=== PATIENT | female | born 1980 | race Caucasian/White ===

== ENCOUNTER 2020-01-20 09:05 | Emergency (ER) | payer SELFPAY ==
--- NOTE | 2020-01-20 09:49 | ER Document Report ---
ED Medical Screen (RME) - General Chief Complaint: Breast Lump Stated Complaint: LUMP ON BREAST Time Seen by Provider: 01/20/20 09:45 Mode of Arrival: Ambulatory Information source: Patient Notes: Patient presents with complaints of right-sided breast possibly abscess with nipple drainage erythema. Reports history of surgery to that breast. Denies family history of cancer. Complains of some nausea and reports she is been really tired lately. Declines antinausea medicine. I have greeted and performed a rapid initial assessment of this patient. A comprehensive ED assessment and evaluation of the patient, analysis of test results and completion of the medical decision making process will be conducted by additional ED providers. TRAVEL OUTSIDE OF THE [place] IN LAST 30 DAYS: No - Related Data Allergies/Adverse Reactions: No Known Allergies Allergy (Verified 01/20/20 09:42) Physical Exam - Vital signs Vitals: Temp Pulse Resp BP Pulse Ox 97.9 F 79 18 134/87 H 99 01/20/20 09:17 01/20/20 09:17 01/20/20 09:17 01/20/20 09:17 01/20/20 09:17 Course - Vital Signs Vital signs: Temp Pulse Resp BP Pulse Ox 97.9 F 79 18 134/87 H 99 01/20/20 09:17 01/20/20 09:17 01/20/20 09:17 01/20/20 09:17 01/20/20 09:17
[2020-01-20] MEDS: ONDANSETRON 4 MG TAB.RAPDIS PO ONE ×2 (11:04→11:05)
--- NOTE | 2020-01-20 11:17 | ER Document Report ---
HPI - HPI Patient complains to provider of: Right breast lump Time Seen by Provider: 01/20/20 09:45 Onset: Last week Onset/Duration: Persistent Quality of pain: Achy Pain Level: 2 Context: Patient presents complaining of right breast lump for the past week. Patient states area seemed mildly erythematous yesterday and she had a purulent bloody drainage from the nipple. Patient states she has had some nausea and increased fatigue. 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 Patient states she did have an atypical mammogram performed in June of last year and was supposed to follow-up for repeat mammogram in 6 months but has not had a repeat mammogram. Patient denies any fever. Associated Symptoms: denies: Fever, Headache Exacerbated by: Denies Relieved by: Denies Similar symptoms previously: No Recently seen / treated by doctor: No - ROS ROS below otherwise negative: Yes Systems Reviewed and Negative: Yes All other systems reviewed and negative - CONSTITUTIONAL Constitutional: DENIES: Fever - RESPIRATORY Notes: Right breast lump, drainage from right nipple - GASTROINTESTINAL Gastrointestinal: REPORTS: Nausea - REPRODUCTIVE Reproductive: DENIES: : - DERM Skin Color: Normal Skin Problems: None Past Medical History - General Information source: Patient - Social History Smoking Status: Current Every Day Smoker Frequency of alcohol use: None Drug Abuse: None Occupation: Retail Family History: Reviewed & Not Pertinent Patient has suicidal ideation: No Patient has homicidal ideation: No - Medical History Medical History: Negative Past Surgical History: Reports: Hx Appendectomy, Hx Section, Hx Genitourinary Surgery - ablation, Hx Tubal Ligation Vertical Provider Document - CONSTITUTIONAL Agree With Documented VS: Yes Exam Limitations: No Limitations General Appearance: WD/WN, No Apparent Distress - INFECTION CONTROL TRAVEL OUTSIDE OF THE [place] IN LAST 30 DAYS: No - HEENT HEENT: Atraumatic, Normocephalic - NECK Neck: Normal Inspection, Supple. negative: Lymphadenopathy-Left, Lymphadenopathy-Right - RESPIRATORY Respiratory: Breath Sounds Normal, No Respiratory Distress Notes: Tender palpable lump to the 8 and 9 o'clock position on the right breast, patient with nearby overlying scar, no drainage or discharge from the nipple. - CARDIOVASCULAR Cardiovascular: Regular Rate, Regular Rhythm - GI/ABDOMEN Gastrointestinal: Abdomen Soft, Abdomen Non-Tender - BACK Back: Normal Inspection - MUSCULOSKELETAL/EXTREMETIES Musculoskeletal/Extremeties: MAEW FROM - NEURO Level of Consciousness: Awake, Alert, Appropriate Motor/Sensory: No Motor Deficit - DERM Integumentary: Warm, Dry, No Rash Course - Re-evaluation Re-evalutation: 01/20/20 11:12 Dr. Levine called and advised having patient just follow-up in the [facility] for an outpatient order and recommends instead ordering a diagnostic mammogram and ultrasound at this time. 01/20/20 11:17 Spoke with Aazm Wang with discharge planning to see if she can help expedite patient follow-up in the [facility] for anticipated follow-up of her breast ultrasound and mammogram results. 01/20/20 11:20 [facility] Warp Splitter Lilliana called stating that typically ER providers do not order the mammogram and ultrasound as that provider is an responsible for the follow-up of patient's results. Warp Splitter recommends expediting follow-up with a primary doctor with the [facility] to order the imaging studies and then they would follow-up accordingly. Call placed again to senior buyer planner Azam Wang to see if she can expedite follow-up to aid in getting her tests ordered in a timely manner. 01/20/20 13:11 Patient returned to room from having her mammogram and diagnostic ultrasound performed. 01/20/20 14:35 Patient will be given a copy of her radiology report and encouraged to follow-up with a primary care provider to establish care and follow-up. - Vital Signs Vital signs: Temp Pulse Resp BP Pulse Ox 97.9 F 79 18 134/87 H 99 01/20/20 09:17 01/20/20 09:17 01/20/20 09:17 01/20/20 09:17 01/20/20 09:17 - Diagnostic Test Radiology reviewed: Image reviewed, Reports reviewed Discharge - Discharge Clinical Impression: Breast lump Condition: Stable Disposition: HOME, SELF-CARE Instructions: Breast Lumps ([facility]) Additional Instructions: Return as needed for any new or worsening symptoms Follow-up with a primary care provider to establish care and to follow-up regarding breast lump Forms: Return to Work Referrals: [facility] [Provider Group] - Follow up as needed [facility] [NO LOCAL MD] - Follow up as needed [facility] [Provider Group] - Follow up in 3-5 days
--- NOTE | 2020-01-20 14:18 | WOMENS IMAGING REPORT ---
EXAM DESCRIPTION: BILAT DIAGNOSTIC MAMMO W/CAD; U/S BREAST UNILAT LIMITED COMPLETED DATE/TIME: 01/20/2020 12:49 pm; 01/20/2020 1:14 pm REASON FOR STUDY: LEFT BREAST LUMP, PAIN, DISCHARGE; RT BREAST LUMP COMPARISON: Not available EXAM PARAMETERS: Standard craniocaudal and mediolateral oblique views of each breast recorded using digital acquisition. Additional right breast 90 mediolateral view and right breast cone compression in the CC and MLO edvin entations. Right breast ultrasound was performed. Read with the assistance of CAD: .[facility] - [employer] Analyst Version 9.2 LIMITATIONS: None. FINDINGS: Patient presents with palpable abnormality in the right breast upper outer quadrant in an area of prior lumpectomy. Patient states she had a lumpectomy to remove atypical cells which was not cancer. Outside mammograms are from [place]. We will attempt to obtain the outside films for marian alberto. Patient presented today through the emergency room RIGHT BREAST MASSES: No suspicious masses. CALCIFICATIONS: No new or suspicious calcifications. ARCHITECTURAL DISTORTION: Deep to the triangular marker indicating the palpable abnormality, there is a lumpectomy with 4 surgical clips present and minimal postoperative architectural distortion. No m ammographic mass. No worrisome microcalcifications in this area. ASYMMETRY: None noted. OTHER: No other significant findings. LEFT BREAST MASSES: No suspicious masses. CALCIFICATIONS: No new or suspicious calcifications. ARCHITECTURAL DISTORTION: None. ASYMMETRY: None noted. OTHER: No other significant finding. Right breast ultrasound: Ultrasound of the patient's palpable abnormality was performed. A bandlike linear scar is present wi th surgical clips present. No discrete mass. No abnormal color flow. No worrisome acoustic absorpt ion. No focal findings. IMPRESSION: No mammographic or sonographic evidence for malignancy right breast. No mammographic evidence for malignancy left breast BREAST DENSITY: c. The breasts are heterogeneously dense, which may obscure small masses. BIRAD: ASSESSMENT: 2 Benign findings. RECOMMENDATION: RECOMMENDED FOLLOW UP: Clinical follow-up for palpable abnormality. SPECIFIC INTERVENTION/IMAGING/CONSULTATION RECOMMENDED:No additional intervention/ imaging/consultati on needed at this time. COMMUNICATION:Patient notified by letter COMMENT: The patient has been notified of the results by letter per MQSA requirements. Additional no tification policies are in place for contacting patient with suspicious or incomplete findings. Quality ID #225: The [employer] recommends an annual screening mammogram for women aged 40 years or over. This facility utilizes a reminder system to ensure that all patients receive reminder letters, and/or direct phone calls for appointments. This includes reminders for routine scr eening mammograms, diagnostic mammograms, or other Breast Imaging Interventions when appropriate. Th is patient will be placed in the appropriate reminder system. TECHNICAL DOCUMENTATION: FINDING NUMBER: (1) ASSESSMENT: (1) JOB ID: [id number] 2010 [employer]- All Rights Reserved Reading location - IP/workstation name: [email or web address]
[2020-01-20 14:48] VITALS: BP 120/82
== END 2020-01-20 14:48 | disposition home or self-care (01) ==
LOC: ER 09:05
DX: N63.0 Unspecified lump in unspecified breast (principal); N64.52 Nipple discharge; R11.0 Nausea; R53.83 Other fatigue; F17.200 Nicotine dependence, unspecified, uncomplicated
CPT/HCPCS: 76642; 77066; 99283; S0119